=== PATIENT | male | born 1955 | race Caucasian/White ===

== ENCOUNTER 2018-02-28 07:16 | Day surgery (SDC) | payer OTHER ==
[2018-02-28] MEDS ORDERED: MIDAZOLAM 1 MG/ML 2 ML INJ ×2 (09:37)
[2018-02-28] MEDS ORDERED: FENTAnyl 50 MCG/ML VIAL (09:37)
== END 2018-02-28 11:41 | disposition home or self-care (01) ==
LOC: GIL 07:16
DX: Z12.11 Encounter for screening for malignant neoplasm of colon (principal); D12.0 Benign neoplasm of cecum; D12.5 Benign neoplasm of sigmoid colon; K29.70 Gastritis, unspecified, without bleeding; K44.9 Diaphragmatic hernia without obstruction or gangrene; K21.9 Gastro-esophageal reflux disease without esophagitis; K64.8 Other hemorrhoids
CPT/HCPCS: 43239; 88305; 88312